=== PATIENT | female | born 1970 | race Caucasian/White ===

== ENCOUNTER 2024-09-07 22:57 | Emergency (ER) | payer BC, SELFPAY ==
[2024-09-07 23:00] VITALS: BP 120/58
[2024-09-08 00:06] LABS: Urine Albumin 1+ (Neg - Trace); Urine Bilirubin Negative (Negative); Urine Character Slightly Cloudy (Clear); Urine Color Yellow; Urine Glucose Negative (Negative); Urine Ketone Negative (Negative); Urine Leukocyte 3+ (Negative); Urine Nitrite Negative (Negative); Urine Occult Blood 4+ (Negative); Urine Urobilinogen Negative (Neg - 1+); Urine pH 6.5 (5.0-9.0)
--- NOTE | 2024-09-08 00:12 | ED.GENMED ---
History of Present Illness
General
Chief Complaint: Urinary Symptoms
Time Seen by Provider: 09/07/24 23:29
History of Present Illness
History of Present Illness:
53-year-old female presents the emergency department for evaluation of foul-smelling urine and fevers as well as left flank pain ongoing for the past 2 to 3 days. Went to urgent care yesterday and was prescribed Bactrim, has taken 4 doses thus far
however fevers have persisted. Denies any dysuria, has chronic urinary urgency secondary to a bladder prolapse. Denies nausea or vomiting
Review of Systems
Review of Systems
Allergies reviewed?: Yes
All Other Systems: ROS reviewed and negative except as documented in HPI and ROS
Phy Exam
Physical Exam
Physical Exam:
GEN: Well appearing, NAD, WDWN
HEENT: Oral mucosa moist, no scleral icterus
Cardiac: Regular rate
Lung: No respiratory distress, no tachypnea
Abdomen: Soft, mild suprapubic tenderness, + L CVAT, - R CVAT
MSK: No gross deformity or injuries
Skin: Good color, no pallor or jaundice, no rashes
Neuro: AO x3, moves all extremities freely
Psych: Calm, cooperative
Course
Orders/Labs/Results
Orders:
Orders
09/07/24 23:53
Urinalysis Reflex To Culture Urgent
Date Specimen was Collected: 09/07/24
Time Specimen was Collected: 23:51
Urine Microscopic Reflex Cult Urgent
Urine Culture Urgent
CLAY Source: U
Specimen Description:
Date Specimen was Collected: 09/07/24
Time Specimen was Collected: 23:51
09/08/24 00:10
0.9% Sodium Chloride 1000 ml [Nss] 1,000 ml IV BOLUS
09/08/24 00:25
CefTRIAXone [Rocephin] 1,000 mg IV NOW STA
09/08/24 00:36
Sterile Water [Sterile Water For Injection] 20 ml .ROUTE .STK-MED
09/08/24 00:49
Complete Blood Count/With Diff Urgent
Comprehensive Metabolic Panel Urgent
Lactic Acid Urgent
Blood Culture Q30M
CLAY Source: Blood/Venous
Specimen Description:
09/08/24 01:10
Blood Culture Q30M
CLAY Source: Blood/Venous
Specimen Description:
09/08/24 01:37
Diphenhydramine [Benadryl] 25 mg IV NOW STA
Abnormal Lab Results
09/07/24 09/08/24
23:53 00:49
RBC 3.45 L 10^6/uL
(4.20-5.40)
Hgb 10.8 L g/dL
(12.0-16.0)
Hct 32.0 L %
(37.0-47.0)
MCH 31.3 H pg
(27.0-31.0)
MPV 10.5 H fL
(7.4-10.4)
Absolute Monos (auto) 0.8 H 10^3/uL
(0.1-0.6)
Lymphocytes % 16.6 L %
(20.5-51.1)
Monocytes % 11.7 H %
(1.7-9.3)
Calcium 8.3 L mg/dl
(8.4-10.2)
Ur Occult Blood Reflex 4+ A
(Negative)
Leukocyte Esterase Rfl 3+ A
(Negative)
Urine WBC (Reflex) >100 A /HPF
(0-5)
Urine Albumin (Reflex) 1+ A
(Neg - Trace)
09/08/24 00:49
09/08/24 00:49
Vital Signs
Initial and Last Documented VS:
Initial Vital Signs
Temp Pulse Resp BP Pulse Ox
98.1 F 70 18 120/58 100
09/07/24 23:00 09/07/24 23:00 09/07/24 23:00 09/07/24 23:00 09/07/24 23:00
Last Documented Vital Signs
Temp Pulse Resp BP Pulse Ox
98.1 F 70 18 120/58 100
09/07/24 23:00 09/07/24 23:00 09/07/24 23:00 09/07/24 23:00 09/07/24 23:00
MDM/Problems Addressed
MDM/Problems Addressed:
53-year-old female presents to the emergency department for evaluation of fever and urinary symptoms. She is found to have UTI although labs are reassuring. Presence of flank pain is suspicious for acute pyelonephritis, she was given IV
ceftriaxone however developed a rash and was promptly given diphenhydramine. Given that sulfa antibiotic was clearly not providing any clinical benefit we will switch to kang quinolone for adequate coverage of pyelonephritis. Clinically suitable
for outpatient management
*Pulse Oximetry
Patient hypoxic: no (100% RA)
*Critical Care Note
Total Time (30-74mins, 75-104mins- exclusive of procedures): Not Applicable
ED Attending Note
-
Portions of this chart may have been created with voice recognition software.� Occasional wrong word or��sound alike� substitutions may have occurred due to the inherent limitations of voice recognition software.
Discharge Plan
Departure
Patient Disposition: Home (Routine Discharge)
Date of Disposition: 09/08/24
Time of Disposition: 02:35
Patient with high blood pressure during this ER visit?: No
Discharge Problem:
Pyelonephritis
Instructions: Urinary tract infection in adults - ED discharge instructions
Prescriptions:
New
ciprofloxacin HCl [Cipro] 500 mg tablet
500 mg PO BID 7 Days Qty: 14 0RF
Referrals:
Nino Ames MD [Family Provider, Family Practice]
Activity Restrictions/Additional Instructions:
Start your antibiotics tomorrow
Return if symptoms do not improve in 2-3 days
Interventions
Interventions:
*Risk Screen - Suicide Last Done: 09/07/24 23:00
*General Assessment Last Done: 09/07/24 23:44
*Neglect/Abuse Screening Last Done: 09/07/24 23:00
*ED- Fall Risk Assessment Last Done: 09/07/24 23:44
*ED COVID-19 Vaccine History Last Done: 09/07/24 23:44
ED-Female Genitourinary Assessment Last Done: 09/07/24 23:44
ED- Neurological Assessment Last Done: 09/07/24 23:44
ED-Skin Assessment Last Done: 09/07/24 23:44
Discharge Date and Time
Print Language: KOREAN
[2024-09-08 00:16] LABS: Urine White Cell >100 /HPF (0-5)
[2024-09-08 00:57] LABS: % Basophils 0.4 % (0-2); % Eosinophils 2.5 % (0-6); % Immature Granulocytes 0.3 % (0-0.5); % Lymphocytes 16.6 % (20.5-51.1); % Monocytes 11.7 % (1.7-9.3); % Neutrophils 68.5 % (42.2-75.2); Absolute Eosinophils 0.2 10^3/uL (0-0.7); Absolute Lymphocytes 1.2 10^3/uL (1.2-3.4); Absolute Monocytes 0.8 10^3/uL (0.1-0.6); Absolute Neutrophils 4.9 10^3/uL (1.4-6.5); Hemoglobin 10.8 g/dL (12.0-16.0); Mean Corp Hgb Conc. 33.8 g/dL (33.0-37.0); Mean Corpuscular Hgb 31.3 pg (27.0-31.0); Mean Corpuscular Volume 92.8 fL (81.0-99.0); Mean Platelet Volume 10.5 fL (7.4-10.4); Nucleated Red Blood Cells % 0 %; Platelet Count 189 10^3/uL (130-400); Red Blood Cell Count 3.45 10^6/uL (4.20-5.40); Red Cell Dist. Width 12.1 % (11.5-14.5); White Blood Cell Count 7.1 10^3/uL (4.8-10.8)
[2024-09-08] MEDS: NSS 1000 IV (01:13)
[2024-09-08] MEDS: ROCEPHIN 1000 MG IV (01:15)
[2024-09-08 01:26] LABS: ALT (SGPT) 16 U/L (0-35); AST (SGOT) 29 U/L (14-36); Albumin 3.8 g/dl (3.5-5.0); Alkaline Phosphatase 69 U/L (38-126); Blood Urea Nitrogen 7 mg/dl (7-17); Calcium 8.3 mg/dl (8.4-10.2); Carbon Dioxide 24 mmol/L (22-30); Chloride 107 mmol/L (98-107); Glucose 96 mg/dl (70-99); Potassium 3.5 mmol/L (3.5-5.1); Sodium 140 mmol/L (135-145); Total Bilirubin 0.4 mg/dl (0.2-1.3); Total Protein 6.4 g/dl (6.3-8.2); eGFR > 60.00
[2024-09-08 01:34] LABS: Lactic Acid 0.8 mmol/L (0.7-2.0)
[2024-09-08] MEDS: BENADRYL 25 MG IV (01:40)
[2024-09-08 03:15] VITALS: BP 96/66
== END 2024-09-08 03:15 | disposition home or self-care (01) ==
LOC: EMR 22:57
PROVIDERS: Physician Assistant; EMERGENCY PHYSICIAN Student in an Organized Health Care Education/Training Program; FAMILY PHYSICIAN Family Medicine
DX: N12 Tubulo-interstitial nephritis, not specified as acute or chronic (principal)
CPT/HCPCS: 96374; 96375; 96361; 99284; 80053; 81003; 81015; 83605; 85025; 87040; 87077; 87086